=== PATIENT | male | born 1950 | race Caucasian/White ===

== ENCOUNTER → 2020-01-30 | Outpatient (CLI) | payer OTHER ==
--- NOTE | 2020-01-30 12:18 | REP ---
MRI LEFT ANKLE: TECHNIQUE: Sagittal proton density, STIR, axial proton density fat sat, T1, coronal proton density, STIR. The Achilles tendon demonstrates thickening with mild increased signal in the distal aspect consistent with tendonitis. There is reactive marrow edema in the posterior calcaneus. Anterior tibial, posterior tibial, flexor hallucis longus, flexor digitorum longus, and peroneal tendons are intact. Anterior and posterior talofibular, calcaneofibular, and deltoid ligaments are intact. Plantar fascia demonstrates no abnormal signal. The other visualized osseous structures demonstrate no abnormal bone marrow signal. There is a lobulated septated oval-shaped ganglion cyst lateral to the cuboid, which measures 9 x 18 x 9 mm. This is in a superficial subcutaneous location. IMPRESSION: Achilles tendonitis. Reactive marrow edema in the calcaneus. Otherwise, no evidence of tendon or ligament tear. There is a lobulated septated ganglion cyst lateral to the cuboid. Electronically Signed by Wilbert Park MD 01/30/2020 10:30 P
== END ==
LOC: M RAD 06:39
PROVIDERS: ATTEND Orthopaedic Surgery
DX: M76.62 Achilles tendinitis, left leg (principal); M67.472 Ganglion, left ankle and foot

== ENCOUNTER → 2024-02-01 | Outpatient (CLI) | payer OTHER | LOC: M SOG 08:34 | PROVIDERS: ATTEND Physician Assistant | DX: M79.645 Pain in left finger(s) (principal); Z53.9 Procedure and treatment not carried out, unspecified reason ==